=== PATIENT | female | born 1950 | race Two or more races ===

== ENCOUNTER 2022-06-08 09:01 | Outpatient (REF) | payer OTHER, SELFPAY ==
--- NOTE | ~2022-06-08 | MR_ITS ---
EXAMINATION: MR BRAIN WITHOUT AND WITH CONTRAST CLINICAL INFORMATION: Right frontal meningioma. COMPARISON: Brain MRI from 08/22/2011. TECHNIQUE: MRI of the brain was obtained using routine sequences without and following the administration of 7 mL of Gadavist intravenous contrast. FINDINGS: No focal restricted diffusion is demonstrated to suggest acute or subacute cerebral ischemia. No evidence of acute or chronic hemorrhagic products on heme-sensitive imaging. Scattered periventricular and deep white matter T2 FLAIR hyperintensities consistent with mild underlying microangiopathy. Proportional prominence of the ventricles and sulcal spaces without evidence of obstructive hydrocephalus. No abnormal mass effect. No midline shift. Normal appearance of the pituitary gland. Normal positioning of the cerebellar tonsils. Normal arterial and venous vascular flow voids are present. There is a homogeneously enhancing extra-axial lesion along the anterior aspect of the right frontal lobe, measuring 1.4 x 0.9 x 1.2 cm (previously 1.1 x 0.8 x 1 cm in 2012). No perilesional edema. No additional abnormal contrast enhancement. Normal, homogeneous marrow signal. Mild mucosal thickening of the paranasal sinuses. No signal abnormalities within the mastoids. MR/MR head/brain wo/w con IMPRESSION: 1. There is a 1.4 cm meningioma along the anterior aspect of the right frontal lobe that has mildly increased in size compared to 2012. 2. No acute intracranial abnormalities. No additional abnormal intracranial enhancement. 3. Mild underlying microangiopathy and generalized cerebral volume loss.
== END 2022-06-08 09:02 | disposition home or self-care (01) ==
LOC: HO.MRI 09:01
PROVIDERS: PCP Internal Medicine; Visit Provider Internal Medicine
DX: D32.9 Benign neoplasm of meninges, unspecified (principal)
CPT/HCPCS: 70553; A9585

== ENCOUNTER 2024-05-24 08:47 | Outpatient (REF) | payer OTHER, MEDICARE, SELFPAY ==
--- NOTE | ~2024-05-24 | MR_ITS ---
EXAMINATION: MR BRAIN WITHOUT AND WITH CONTRAST CLINICAL INFORMATION: Right frontal meningioma. Benign neoplasm. COMPARISON: Brain MRI from 06/08/2022. TECHNIQUE: MRI of the brain was obtained using routine sequences without and following the administration of 6.5 mL of Gadavist intravenous contrast. FINDINGS: No focal restricted diffusion is demonstrated to suggest acute or subacute cerebral ischemia. No evidence of acute or chronic hemorrhagic products on heme-sensitive imaging. Scattered periventricular and deep white matter T2 FLAIR hyperintensities consistent with mild underlying microangiopathy. Proportional prominence of the ventricles and sulcal spaces without evidence of obstructive hydrocephalus. No abnormal mass effect. No midline shift. Normal appearance of the pituitary gland. Normal positioning of the cerebellar tonsils. Normal arterial and venous vascular flow voids are present. Similar appearance of a homogeneously enhancing extra-axial lesion along the anterior aspect of the right frontal lobe, measuring 1.4 x 1.1 x 1.3 cm (previously 1.4 x 0.9 x 1.2 cm in 2021). No perilesional edema. No additional abnormal contrast enhancement. Normal, homogeneous marrow signal. Mild mucosal thickening of the paranasal sinuses. No signal abnormalities within the mastoids. MR/MR head/brain wo/w con IMPRESSION: 1. Similar appearance of a 1.4 cm meningioma along the anterior right frontal lobe, potentially minimally increased in size. 2. No acute intracranial abnormalities. No additional abnormal intracranial enhancement. 3. Mild underlying microangiopathy and generalized cerebral volume loss. Electronically signed by: Rajinder Vigil DO 06/03/2024 07:12 AM [facility]
[2024-05-24] MEDS: gadobutroL 7.5 ML VIAL IVPUSH (10:25)
== END 2024-05-24 08:48 | disposition home or self-care (01) ==
LOC: HO.MRI 08:47
PROVIDERS: PCP Internal Medicine; Visit Provider Internal Medicine
DX: D32.9 Benign neoplasm of meninges, unspecified (principal)
CPT/HCPCS: 70553; A9585